=== PATIENT | male | born 1980 | race Caucasian/White ===

== ENCOUNTER 2020-08-31 22:59 | Emergency (ER) | payer OTHER ==
[2020-08-31 23:46] LABS: BASOPHIL 0.7 % (0-2); EOSINOPHIL 1.5 % (0-5); HCT 38.2 % (42.0-52.0); HGB 13.2 g/dl (13.2-18.0); MCH 30.1 pg (25.0-31.0); MCHC 34.6 g/dL (32.0-36.0); MCV 87.2 fL (78.0-100.0); MONOCYTE 6.4 % (0-12); MPV 10.4 fL (6.0-9.5); NEUTROPHIL 74.1 % (41-80); NRBC 0; PLT 222 K/uL (150-400); RBC 4.38 M/uL (4.70-6.00); RDW 13.2 % (11.5-14.0); WBC 12.7 K/uL (4.0-10.5)
[2020-09-01 00:04] LABS: ALBUMIN 3.8 g/dL (3.4-5.0); BILIRUBIN - TOTAL 0.2 mg/dL (0.2-1.0); CREATININE 1.11 mg/dL (0.67-1.17); GLOBULIN (CALCULATION) 3.9 g/dL; POTASSIUM 3.6 mmol/L (3.5-5.1); TOTAL PROTEIN 7.7 g/dL (6.4-8.2)
== END 2020-09-01 05:11 | disposition home or self-care (01) ==
LOC: FER 22:59
PROVIDERS: Emergency Medicine
DX: S06.0X9A Concussion with loss of consciousness of unspecified duration, initial encounter (principal); W19.XXXA Unspecified fall, initial encounter; Y92.149 Unspecified place in prison as the place of occurrence of the external cause
CPT/HCPCS: 36415; 70450; 80053; 84484; 85025

== ENCOUNTER 2021-12-04 17:16 | Emergency (ER) | payer OTHER ==
[2021-12-04 18:56] LABS: BASOPHIL 0.8 % (0-2); EOSINOPHIL 1.5 % (0-5); HCT 35.9 % (42.0-52.0); HGB 11.8 g/dl (13.2-18.0); MCH 30.3 pg (25.0-31.0); MCHC 32.9 g/dL (32.0-36.0); MCV 92.3 fL (78.0-100.0); MONOCYTE 8.2 % (0-12); MPV 9.5 fL (6.0-9.5); NEUTROPHIL 65.4 % (41-80); NRBC 0; PLT 276 K/uL (150-400); RBC 3.89 M/uL (4.70-6.00); RDW 13.3 % (11.5-14.0); WBC 7.4 K/uL (4.0-10.5)
[2021-12-04 18:58] LABS: BILIRUBIN NEGATIVE (NEGATIVE); BLOOD NEGATIVE Ery/uL (NEGATIVE); CLARITY CLEAR (CLEAR); COLOR YELLOW (YELLOW); GLUCOSE (U) NORMAL (NORMAL); LEUKOCYTES NEGATIVE Leu/uL (NEGATIVE); NITRITE NEGATIVE (NEGATIVE); PROTEIN NEGATIVE (NEGATIVE); UROBILINOGEN 0.2 mg/dL (0.2-1.0)
[2021-12-04 19:02] LABS: BARBITURATES NEGATIVE (NEGATIVE); ECSTASY (MDMA) POSITIVE (NEGATIVE); MARIJUANA (THC) NEGATIVE (NEGATIVE); METHADONE NEGATIVE (NEGATIVE); OPIATES NEGATIVE (NEGATIVE)
[2021-12-04 19:03] LABS: AMPHETAMINES POSITIVE (NEGATIVE); OXYCODONE NEGATIVE (NEGATIVE)
[2021-12-04 20:36] LABS: CREATININE 0.8 mg/dL (0.67-1.17); POTASSIUM 4.2 mmol/L (3.5-5.1)
[2021-12-04 20:42] LABS: LACTIC ACID 1.6 mmol/L (0.4-1.9)
== END 2021-12-04 21:06 | disposition left against medical advice (07) ==
LOC: FER 17:16
PROVIDERS: Physician Assistant
DX: S81.802A Unspecified open wound, left lower leg, initial encounter (principal); S81.801A Unspecified open wound, right lower leg, initial encounter; F19.10 Other psychoactive substance abuse, uncomplicated; Z53.29 Procedure and treatment not carried out because of patient's decision for other reasons; X58.XXXA Exposure to other specified factors, initial encounter
CPT/HCPCS: 36415; 80048; 80305; 81003; 83605; 85025; 99283